=== PATIENT | male | born 1980 | race African-American/Black ===

== ENCOUNTER 2022-08-08 22:49 | Emergency (ER) | payer OTHER, SELFPAY ==
[2022-08-08 22:56] VITALS: BP 164/97; PULSE 79; RESP 18; TEMP 36.6; O2SAT 97; BMI 36.3
--- NOTE | 2022-08-08 23:02 | ECG_ITS ---
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 Measurements Intervals [place] Rate: 71 P: 49 CO: 164 QRS: 47 QRSD: 102 T: 12 QT: 367 QTc: 400 Interpretive Statements SINUS RHYTHM No previous ECG available for comparison Electronically Signed On 08-09-2022 8:39:45 INTERVENTIONAL TECHNOLOGIST by Liliam Chavira M.D. [id number]
== END 2022-08-09 00:57 | disposition still patient (30) ==
PROVIDERS: Emergency Provider Family Medicine
DX: Z53.21 Procedure and treatment not carried out due to patient leaving prior to being seen by health care provider (principal)
CPT/HCPCS: 93005

== ENCOUNTER → 2022-10-19 14:10 | Outpatient (BNVA) | payer OTHER, SELFPAY | PROVIDERS: Referring Provider Emergency Medicine Emergency Medical Services; Visit Provider Orthopaedic Surgery | DX: M16.11 Unilateral primary osteoarthritis, right hip (principal) | CPT/HCPCS: 99203 ==

== ENCOUNTER 2022-12-13 09:51 | Observation (INO) | payer OTHER, SELFPAY ==
[2022-12-06 10:21] VITALS: BMI 43.1
--- NOTE | 2022-12-06 10:36 | ANES.PREANE2 ---
Pre-Anesthetic Assessment Height/Weight: Height 1.85 m Weight 148.325 kg Operation Date: 12/13/22 07:00 Proposed Procedures p right total hip arthroplasty 55232, M16.11(Right) - Fito Pacheco MD Familial anesthetic complications: None Social Alcohol (1-2 drinks a couple night a week) and Tobacco Exam alert, oriented x 3, clear to auscultation bilaterally and regular rate & rhythm Airway Mallampati: Class IV Dentition: full Pulmonary None reported CV/HEM Hypertension and None reported None reported Hepatic None reported GI None reported Metabolic Hyperlipidemia [facility]/skel Lower Back Pain Anesthetic Plan ASA status: 2 Anesthesia: Regional (specify below) Risk of > 500 ml blood loss (7ml/kg in children): Yes, adequate IV access and fluids planned Medications/Allergies Home Medications Medication Instructions Recorded Confirmed Last Taken Type omega 9-jpi-hhs-fish oil 1,000 mg 1 cap PO DAILY 10/19/22 12/06/22 Unknown History (120 mg-180 mg) capsule (Fish Oil) calcium phosphate,dibasic 77 tab PO 12/06/22 12/06/22 History mg-vitamin D3 400 unit tablet rosuvastatin 20 mg tablet 20 mg PO DAILY 12/06/22 12/06/22 12/06/22 History Allergies Allergy/AdvReac Type Severity Reaction Status Date / Time shellfish derived Allergy ALGY-Anaphy Verified 12/06/22 10:18 laxis [facility] Anesthesia Social History (Updated 10/19/22 @ 14:34 by Adolfo Vega LPN) Smoking and tobacco status: current every day smoker Alcohol intake: current Alcohol intake frequency: holidays/special occasions only Substance/Drug Use: never Data Anesthesia Cardiac Studies: No Data to Display
[2022-12-13] VITALS (22 sets, daily range): BP systolic 111–163; BP diastolic 34–98; PULSE 52–80; RESP 16–18; TEMP 36.1–36.7; O2SAT 94–99
[2022-12-13] MEDS: oxyCODONE 20 mg ER (12 HR) Tablet PO (06:06)
[2022-12-13] MEDS: CELEcoxib 200 mg Capsule 400 MG PO (06:07)
[2022-12-13] MEDS: gabapentin 300 mg Capsule PO ×2 (06:08→17:37)
[2022-12-13] MEDS: acetaminophen 500 mg Tablet 1000 MG PO ×3 (06:08→21:28)
[2022-12-13] MEDS: sodium chloride 0.9% 1,000 ML 30 ML IV (06:10)
--- NOTE | 2022-12-13 06:56 | W.PM.OPSFHP ---
Same Day Surgery H&P Indication for Procedure/HPI DATE OF PROCEDURE: December 13, 2022 CHIEF COMPLAINT/INDICATIONFOR SURGICAL PROCEDURE: Osteoarthritis right hip here for total hip arthroplasty PREOP DIAGNOSIS: Osteoarthritis right hip PLANNED PROCEDURE: Operation Date: 12/13/22 07:00 Proposed Procedures p right total hip arthroplasty 38761, M16.11(Right) - Fito Pacheco MD 41-year-old male for right total hip arthroplasty. Has had pain for years worse with standing and walking. Has tried anti-inflammatories with incomplete help. Now unable to ambulate more than a few 100 feet without pain. Medications/Allergies* Home Medications Medication Instructions Recorded Confirmed Type omega 0-gjq-snu-fish oil 1,000 mg 1 cap PO DAILY 10/19/22 12/06/22 History (120 mg-180 mg) capsule (Fish Oil) calcium phosphate,dibasic 77 1 tab PO DAILY 12/06/22 12/13/22 History mg-vitamin D3 400 unit tablet rosuvastatin 20 mg tablet 20 mg PO DAILY 12/06/22 12/06/22 History Allergies/Adverse Reactions Allergy/AdvReac Type Severity Reaction Status Date / Time shellfish derived Allergy ALGY-Anaphy Verified 12/06/22 10:18 laxis Current Medications: Generic Name Dose Route Start Last Admin Trade Name Freq PRN Reason Stop Dose Admin Sodium Chloride 1,000 mls @ 30 mls/hr 12/13/22 06:00 12/13/22 06:10 Sodium Chloride 0.9% IV 12/14/22 05:59 30 mls/hr .Q24H AIXA Administration Pertinent History/Comorbid Conditions* Social History Smoking and tobacco status: current every day smoker Alcohol intake: current Alcohol intake frequency: holidays/special occasions only Substance/Drug Use: never Pertinent Exam Findings alert, oriented x 3, clear to auscultation bilaterally, regular rate & rhythm and operative site marked Recommendations Surgery/Procedure today Coding Level of Care Code Acute Code for Chg Fwd Diagnoses
--- NOTE | 2022-12-13 07:14 | P.ANESUD_ITS ---
Pre-Anesthetic Update Pre-Anesthetic Assessment: Date of Surgery/Procedure: 12/13/22 Preop [place] gn[place]: Osteoarthritis right hip Proposed Procedure: Operation Date: 12/13/22 07:00 Proposed Procedures p right total hip arthroplasty 13013, M16.11(Right) - Fito Pacheco MD Any changes to Pre-Anesthetic Assessment?: No Last Intake: Intake Last Liquid Date 12/12/22 Last Liquid Time 21:00 Last Solid Date 12/12/22 Last Solid Time 17:00 Vitals: Temperature 98.1 F 12/13/22 05:59 Temperature Source Temporal Artery S can 12/13/22 05:59 Pulse Rate 74 12/13/22 05:59 Respiratory Rate 18 12/13/22 06:06 Respiratory Effort Spontaneous 12/13/22 06:06 Respiratory Depth Normal 12/13/22 06:06 Respiratory Patter n Normal 12/13/22 06:06 Blood Pressure 154/98 12/13/22 05:59 Blood Pressure Sandrita n 116 12/13/22 05:59 Pulse Oximetry 99 12/13/22 06:06 Oxygen Delivery Me thod Room Air 12/13/22 06:03 Exam: Pre-Anes Outpt Exam: alert, oriented x 3, clear to auscultation bilaterally and regular rate & rhythm Cardiac Studies: No Data to Display
[2022-12-13] MEDS: ceFAZolin 1,000 MG in sodium chloride 0.9% (plus) 50 ML 100 MG IV (07:16)
[2022-12-13] MEDS: ceFAZolin 2,000 MG in sodium chloride 0.9% (plus) 50 ML 100 MG IV ×3 (07:16→22:43)
--- NOTE | 2022-12-13 07:19 | P.HP_ITS ---
Same Day Surgery H&P Indication for Procedure/HPI DATE OF PROCEDURE: December 13, 2022 PREOP DIAGNOSIS: Osteoarthritis right hip PLANNED PROCEDURE: Operation Date: 12/13/22 07:00 Proposed Procedures p right total hip arthroplasty 11994, M16.11(Right) - Fito Pacheco MD Medications/Allergies* Home Medications Medication Instructions Recorded Confirmed Type omega 4-dqt-ykx-fish oil 1,000 mg 1 cap PO DAILY 10/19/22 12/06/22 History (120 mg-180 mg) capsule (Fish Oil) calcium phosphate,dibasic 77 1 tab PO DAILY 12/06/22 12/13/22 History mg-vitamin D3 400 unit tablet rosuvastatin 20 mg tablet 20 mg PO DAILY 12/06/22 12/06/22 History Allergies/Adverse Reactions Allergy/AdvReac Type Severity Reaction Status Date / Time shellfish derived Allergy ALGY-Anaphy Verified 12/06/22 10:18 laxis Current Medications: 3 Generic Name Dose Route Start Last Admin Trade Name Freq PRN Reason Stop Dose Admin Sodium Chloride 1,000 mls @ 30 mls/hr 12/13/22 06:00 12/13/22 06:10 Sodium Chloride 0.9% IV 12/14/22 05:59 30 mls/hr .Q24H AIXA Administration Pertinent History/Comorbid Conditions* Social History Smoking and tobacco status: current every day smoker Alcohol intake: current Alcohol intake frequency: holidays/special occasions only Substance/Drug Use: never Coding Level of Care Code Acute Code for Chg Fwd Diagnoses
[2022-12-13] MEDS: tranexamic acid 1,000 mg/10mL SDV 1000 MG IV (07:48)
--- NOTE | 2022-12-13 09:18 | P.OP_ITS ---
Operative Report Date of procedure: December 13, 2022 Pre-op diagnosis: Preop Diagnosis Osteoarthritis right hip Post-op diagnosis: same Post-op diagnosis: Same Procedure done: Right total hip arthroplasty Implants: 1) [place] 58 mm Trident 2 solid back acetabular shell 2) Size 4 [place] 127 degree neck angle Accolade 2 stem 3} 28mm standard femoral head 4} F MDM metal liner Pathology: none sent Surgeon: Fito Pacheco Facility Engineer: Dinesh Perales Facility Engineer: The nurse practitioner assisted with critical portions of the case including positioning, exposure, implantation of components, closure, and postoperative abduction pillow application. Anesthesia: Nerve Block (Spinal) Estimated blood loss (mL): 250 Findings: The patient had severe eburnated bone over his femoral head and acetabulum with peripheral osteophytes about the femoral head and lateral acetabulum Condition: stable Disposition: PACU Procedure: The patient was taken to the operating room and anesthesia provided by the anesthesia service. The patient was placed in the lateral position on a pegboard. A timeout was performed. The patient was draped in the usual fashion. A 15 cm long incision was made beginning just proximal to the greater trochanter and extending posteriorly to a point just distal to the trochanter on the posterior border of the trochanter. Dissection was carried down with electrocautery through the subcutaneous fat to the fascia fermin which was divided proximally and distally with curved scissors. The anterior two thirds of the gluteus medius and minimus were elevated off the hip with electrocautery. The capsule was divided in a H-like fashion. The hip was dislocated and a neck cut made just above the level of the lesser trochanter. Exposure of the acetabulum was facilitated with the acetabular retractors. Remnants of labrum and peripheral osteophytes were removed with electrocautery and a rongeur. A reamer 2 mm under the size the femoral head was utilized to ream medially to the base of the palm and are. Reaming was then increased in 1 mm intervals until a healthy rim a trabecular bone was encountered. The rim was touched with the reamer the size of the final acetabular shell to be placed. A final Trident 2 acetabular cup of the same size as the final reaming was press- fit into place. The ADM liner was secured. Attention was then focused on the femur. The canal was localized with a canal finder. Broaching was then accomplished until a stable broach size was obtained. A trial reduction with the head and neck provided excellent stability. The wound was irrigated with saline and antibiotic solution. The final [place] Accolade II stem was press-fit into place. The femoral head was placed and the hip was reduced. The hip was brought through range of motion and found to be free of impingement and stable. The anterior capsule was reapproxi mated with 1 Ethibond. The gluteus medius and minimus were repaired through bone with 5 Ethibond and reinforced with 1 Ethibond. The fascial fermin was closed with a running 0 Stratafix suture. Deep pelvic tissues were closed with 2-0 Stratafix and the skin with a running 4-0 l Stratafix. The skin was covered with a Prineo dressing and op site dressings.
--- NOTE | 2022-12-13 09:25 | XR_ITS ---
WS: [id number] XR hip RT 1V wo/w pel [id number] REASON FOR EXAM: Total hip arthroplasty FINDINGS: Total right hip arthroplasty. The prosthetic components are in proper position and alignment and intact. No bone abnormality. XR/XR hip RT 1V wo/w pel [id number] IMPRESSION: Total right hip arthroplasty without abnormality.
--- NOTE | 2022-12-13 09:33 | PC.NURSE ---
Pt arrived to PACU, awake, pt denies any pain or nausea at this time. Dressing to right hip C/D/I, abductor pillow in place, right toes w/d, cap refill < 3 seconds, good pedal pulse noted. Pt reports sensation above level L1. Ice pack applied. SCD's in place and running.
[2022-12-13] MEDS: oxyCODONE 5 mg IR Tab/Cap PO (11:26)
--- NOTE | 2022-12-13 13:32 | ANE.PACU2 ---
Inpatient post-anesthesia follow up: Airway intact: Yes Vital signs: Temperature 97.8 F Pulse Rate 61 Respiratory Rate 16 Blood Pressure 128/79 Pulse Oximetry 95 Oxygen Delivery Me thod Room Air Oxygen Flow Rate Fraction of Inspir ed Oxygen Hydration adequate: Yes Nausea and vomiting: No Pain level: 2 Mental status: Baseline
[2022-12-13] MEDS: oxyCODONE 5 mg IR Tab/Cap 10 MG PO ×3 (15:39→23:23)
[2022-12-13] MEDS: sennosides-docusate Tablet 2 TAB PO (17:37)
[2022-12-13] MEDS: CELEcoxib 200 mg Capsule PO (17:37)
[2022-12-14 03:22] VITALS: BP 148/74; PULSE 60; RESP 18; TEMP 36.8; O2SAT 96
[2022-12-14 04:07] LABS: Hemoglobin 13.4 g/dL (11.7-16.6)
[2022-12-14] MEDS: acetaminophen 500 mg Tablet 1000 MG PO (06:05)
[2022-12-14] MEDS: CELEcoxib 200 mg Capsule PO (06:06)
[2022-12-14] MEDS: ceFAZolin 2,000 MG in sodium chloride 0.9% (plus) 50 ML 100 MG IV (06:06)
[2022-12-14 07:28] VITALS: BP 175/93; PULSE 77; RESP 18; TEMP 36.7; O2SAT 96
[2022-12-14 08:00] VITALS: PULSE 77; RESP 18; O2SAT 96
--- NOTE | 2022-12-14 08:02 | PM.DCS ---
Discharge Providers Date of Admission: 12/13/22 09:51 Date of Discharge: December 14, 2022 Attending Provider at Admission: Fito Soares MD Attending Provider at Discharge: Fito Soares MD Primary Care Provider: Saad Reyes DO Diagnoses at Discharge Discharge Diagnosis (1) Status post right hip replacement: Status: Acute (2) Osteoarthritis of right hip: Status: Acute Reason for Visit Reason for Visit: M16.11 Brief History: 42-year-old male with years of chronic right hip pain despite appropriate nonoperative management. Admitted for elective right total hip arthroplasty Hospital Course Hospital Course The patient tolerated surgery well. They remained hemodynamically stable. They was begun on aspirin and sequential compression dressing for DVT prophylaxis. The patient was mobilized with therapy beginning the day of surgery and by the first postoperative day independent with the walker. As the pain was adequately controlled and they were fully mobile they were discharged home. Physical Exam Narrative: On the day of discharge the hip incision was clean. The incision was free of drainage. They had no particular swelling about the thigh or distal. No distal neurovascular deficits were noted. Discharge Data Studies Completed and Pending Completed Studies During Hospitalization Category Date Time Status XR hip RT 1V wo/w pel [id number] Routine Exams 12/13/22 09:25 Completed Radiology Impressions Hip X-Ray 12/13/22 09:25 IMPRESSION: Total right hip arthroplasty without abnormality. Laboratory Results Hgb 13.4 g/dL (11.7-16.6) 12/14/22 03:13 Vitals Last Vital Signs Temp 98.0 F 12/14/22 07:28 Pulse 77 12/14/22 07:28 Resp 18 12/14/22 07:28 BP 175/93 12/14/22 07:28 Pulse Ox 96 12/14/22 07:28 O2 Del Method Room Air 12/14/22 07:28 Discharge Plan Discharge Patient Disposition: Home Health Service Condition: Stable Prescriptions: New oxycodone 5 mg Tablet 10 mg PO Q3H PRN (Reason: Moderate Pain) 7 Days Qty: 40 0RF acetaminophen 500 mg Tablet 1,000 mg PO Q8H 14 Days Qty: 84 0RF aspirin 325 mg Tablet,Delayed Release (Dr/Ec) 325 mg PO DAILY 30 Days Qty: 30 0RF gabapentin 300 mg Capsule 300 mg PO BID 7 Days Qty: 14 0RF celecoxib 200 mg Capsule 200 mg PO Q12H 14 Days Qty: 28 0RF Continued omega 9-fhz-jaq-fish oil [Fish Oil] 1,000 mg (120 mg-180 mg) capsule 1 cap PO DAILY rosuvastatin 20 mg Tablet 20 mg PO DAILY Vitamin D (with calcium) 77-400 mg-unit Tablet 1 tab PO DAILY Discharge Orders: Discharge Order (Routine); Ordered 12/14/22 Ordered By: Fito Soares Other Ambulatory Orders: DME: Walker (Order) Location: None Selected Ordered By: Fito Soares Referrals: [facility] [place] [facility] ([facility]) [Outside] Fito Soares MD [Physician] - 12/28/22 2:15 pm Patient Instructions: Opioid Safety Activity Restrictions/Additional Instructions: Okay to shower. No soaking incision in tub May remove superficial tape dressing in 48 hours. Apply FirstIce up to 20 min/hr for pain and swelling Take Celebrex twice a day for the next 15 days for pain , discontinue other anti-inflammatories Take Neurontin twice a day for 7 days. Take Tylenol 500mg (up to 2 tabs) 3 times a day for mild pain Take oxycodone for breakthrough pain. Exercises per physical therapy. May weight-bear as tolerated on total hip arthroplasty IF HAVE ANY PROBLEMS OR QUESTIONS CALL HOSPITAL ERP BUSINESS ANALYST AT AND ASK TO HAVE DR. SOARES PAGED. Discharge Attestations Time Spent in Discharge Care*: other Quality Metrics Clinical Quality Measures [ No reported AMI, CVA or VTE this stay] Coding Level of Care Code Acute Code for Chg Fwd Diagnoses Status post right hip replacement Z96.641 Osteoarthritis of right hip M16.11
[2022-12-14] MEDS: gabapentin 300 mg Capsule PO (09:48)
[2022-12-14] MEDS: aspirin 325 mg EC Tablet PO (09:48)
[2022-12-14] MEDS: sennosides-docusate Tablet 2 TAB PO (09:48)
[2022-12-14 09:50] VITALS: RESP 18
[2022-12-14] MEDS: oxyCODONE 5 mg IR Tab/Cap 10 MG PO (09:50)
--- NOTE | 2022-12-14 10:33 | PC.CHAP ---
Pastoral Care Encounter/Spiritual Assessment Type of Contact [] Declined barber stylist visit [] Patient/Family/Request visit [] Outpatient visit [] Follow-up visit [] Physician referral [] Code/Alert [x] Routine visit [] Staff referral [] Actively dying [] Patient sleeping [x] Family support [] [] Out of room [] Palliative care [] [] Receiving care in room [] Pre-surgical visit [] Trauma [] Long length of stay [] ICU visit [] Other: Relational/Emotional Strength [] Patient feels connected with others/family/visitors/staff [] Distress [] Loneliness/isolation [] Abandonment Spirituality of Patient [] Person of Lian [] Attends Restorationist of their Lian [] Believes in Prayer [] Reads Bible or Mormonism materials [x] There are Spiritual issues to be addressed Hip Hop Artist Interventions [] Prayer [x] Active listening [] Non-anxious presence [] Spiritual/emotional support [] Crisis/trauma care [] Spiritual counseling [] Bereavement support [] Provided bereavement packet [] Provided Bible/devotional materials [] Provided toy/stuffed animal, coloring book to patient or family member [] Provided Communion [] Anointing/Eustace [] Salvation [] Completed spiritual assessment [] Other: Impact on Illness or Injury [] Angry [] Fearful [] Anxious [] Often cries [] Exhaustion [] Unable to work [] Unable to attend episcopal [] Unable to walk/stand [] Unable to read [] Unable to drive [] Unable to eat/drink [] Unable to sleep [] Unable to be with family [] Patient intubated [] Other: Summary Time spent with patient 5 min
[2022-12-14 10:51] VITALS: RESP 18
== END 2022-12-14 11:41 | disposition home health service (06) ==
LOC: MEDSURG 09:54
PROVIDERS: Admitting Provider Orthopaedic Surgery; PCP Emergency Medicine Emergency Medical Services; Visit Provider Orthopaedic Surgery
PROC: (CPT 27130; principal; 2022-12-13 07:00)
DX: M16.11 Unilateral primary osteoarthritis, right hip (principal); F17.200 Nicotine dependence, unspecified, uncomplicated; I10 Essential (primary) hypertension; E78.5 Hyperlipidemia, unspecified
CPT/HCPCS: 27130; 36415; 73501; 85018; 97116; 97162; 97166; 97530; C1776; G0378; J0690; J1100; J1580; J2250; J2405; J2704; J3010; J7030

== ENCOUNTER 2022-12-25 10:27 | Emergency (ER) | payer OTHER, SELFPAY ==
[2022-12-25] VITALS (7 sets, daily range): BP systolic 144–195; BP diastolic 89–108; PULSE 87–99; RESP 16–18; TEMP 36.7; O2SAT 94–98; BMI 41.5
--- NOTE | 2022-12-25 11:35 | XRR_ITS ---
PROCEDURE INFORMATION: Exam: XR Chest Exam date and time: 12/25/2022 11:49 AM Age: 42 years old Clinical indication: Cough and dyspnea; TECHNIQUE: Imaging protocol: Radiologic exam of the chest. Views: 1 view. COMPARISON: No relevant prior studies available. FINDINGS: Lungs: Unremarkable. No consolidation. Pleural spaces: Unremarkable. No pleural effusion. No pneumothorax. Heart/Mediastinum: Unremarkable. No cardiomegaly. Bones/joints: Unremarkable. XR/XR chest 1V portable [id number] IMPRESSION: No acute findings.
--- NOTE | 2022-12-25 11:35 | ECG_ITS ---
[facility] Test Date: 2022-12-25 Pat Name: Sadia Concepcion Department: Room: Gender: Male Civil Engineering Intern: : 1980 Requested By: Amor Rao Order Number: [id number] Mora MD: Darrell Long M.D. Measurements Intervals [place] Rate: 89 P: 38 [place]: 145 QRS: 6 QRSD: 108 T: 5 QT: 348 QTc: 424 Interpretive Statements SINUS RHYTHM Compared to ECG 08/08/2022 23:05:55 No significant changes Electronically Signed On 12-25-2022 12:27:55 CDT by Darrell Long M.D. [id number]
--- NOTE | 2022-12-25 12:04 | ED_ITS ---
HPI - Extremity Problem General: Chief complaint: Extremity Problem,Nontraumatic Stated complaint: right side hip pain post surgery, fever Time Seen by Provider: 12/25/22 11:34 Source: patient Mode of arrival: ambulatory History of Present Illness: 42-year-old male presents emergency room complaining of dysuria and some mild to moderate right hip pain he recently had a hip arthroplasty done for osteoarthritis. He has not had any swelling no fever sweats or chills. He denies any drainage from the wound. Nose new swelling in the leg. MD Complaint: extremity pain Associated symptoms: Deny chest pain, fever(s) or rash Review of Systems Const: Denies: fever(s), chills, fatigue or malaise ENMT: Denies: throat pain, ear or mastoid pain, nasal discharge or nasal congestion Card: Denies: chest pain, edema, dyspnea on exertion or orthopnea Resp: Denies: dyspnea, productive cough or non-productive cough GI: Denies: abdominal pain, nausea, vomiting, hematemesis, coffee ground emesis, diarrhea, constipation, bloating, hematochezia or melena : Denies: flank pain, dysuria, urinary frequency or urinary urgency Skin/Breast: Denies: rash or pruritus PFSH ED PFSH: Social History Smoking and tobacco status: current every day smoker Alcohol intake: current Alcohol intake frequency: holidays/special occasions only Substance/Drug Use: never Current occupation: Physical Exam Const: GENERAL APPEARANCE: cooperative and comfortable ORIENTATION/CONSCIOUSNESS: Yes awake, Yes oriented to person, Yes oriented to place and Yes oriented to time HENMT: COMMON NORMALS: normocephalic, atraumatic and hearing grossly normal bilaterally HEAD & SCALP: normocephalic and atraumatic Resp: COMMON NORMALS: normal respiratory effort, No retractions, No use of accessory muscles and clear to auscultation bilaterally AUSCULTATION: clear to auscultation bilaterally Cardio: COMMON NORMALS: regular rate, regular rhythm and No murmurs present (Cardio) RATE: regular rate RHYTHM: regular rhythm GI: COMMON NORMALS: Soft to palpation and No hepatosplenomegaly present AUSCULTATION: Yes normoactive bowel sounds PALPATION: Yes Soft to palpation, No Tenderness to palpation present (GI), No Guarding due to palpation present (GI) and Yes No hepatosplenomegaly present Extremity: COMMON NORMALS: normal to inspection, capillary refill normal, no clubbing, cyanosis or edema, no calf tenderness and no pedal edema Neuro: SENSORIUM/ORIENTATION: Yes oriented to person, Yes oriented to place and Yes oriented to time Skin: OTHER: Steri-Strips in place on the incision site these were removed there is a very small area on the superior aspect incision where the skin edges inverted slightly and is only about 2 mm of open space and is only partial-thickness there is no redness no erythema no induration no fluctuance minimal discomfort with palpation did not extend through to any fluid with palpation Course Vital Signs: Vital signs: Vital Signs Temperature 98.1 F 12/25/22 10:36 Pulse Rate 87 12/25/22 16:34 Respiratory Rate 16 12/25/22 16:34 Blood Pressure 171/103 12/25/22 16:34 Pulse Oximetry 95 12/25/22 16:34 Oxygen Delivery Me thod Room Air 12/25/22 11:26 MDM - Extremity (Nontraumatic) Medical Decision Making Patient does have a cystitis. No other signs of infection there is a small fluid collection noted on the CT is suspect that is a seroma. Discussed with Dr. Carney. We will start him on antibiotics cultures have been done have him follow-up next week in the orthopedic clinic return if he has further problems. Medical Records I reviewed the patient's medical records. Lab Data I reviewed the patient's lab results. 12/25/22 12:08 12/25/22 12:08 Radiology Impressions Chest X-Ray 12/25/22 11:35 IMPRESSION: No acute findings. Hip CT 12/25/22 13:40 IMPRESSION: 1. There is a fluid collection in the subcutaneous soft tissues adjacent to the right gluteal muscles. Differential includes postoperative seroma, hematoma, and abscess formation. Stranding is present in the adjacent subcutaneous soft tissues. 2. Status post right total hip replacement. Acetabular and proximal femoral components appear intact and in satisfactory alignment. Laboratory Results WBC 13.8 10^3/uL (4.0-10.0) H 12/25/22 12:08 RBC 4.29 10^6/uL (4.1-5.3) 12/25/22 12:08 Hgb 13.4 g/dL (11.7-16.6) 12/25/22 12:08 Hct 40.8 % (42.0-52.0) L 12/25/22 12:08 MCV 95.1 fl (80-94) H 12/25/22 12:08 MCH 31.2 pg (28.0-34.0) 12/25/22 12:08 MCHC 32.8 g/dL (30.0-36.0) 12/25/22 12:08 RDW 13.3 % (12.1-15.1) 12/25/22 12:08 Plt Count 377 10^3/cmm (130-400) 12/25/22 12:08 MPV 9.0 fL (7.4-10.4) 12/25/22 12:08 Neut % (Auto) 66.5 % 12/25/22 12:08 Lymph % (Auto) 20.8 % 12/25/22 12:08 Walker % (Auto) 9.8 % 12/25/22 12:08 Eos % (Auto) 2.1 % 12/25/22 12:08 Baso % (Auto) 0.4 % 12/25/22 12:08 Neut # (Auto) 9.17 10^3/uL (1.8-7.7) H 12/25/22 12:08 Lymph # (Auto) 2.9 10^3/uL (0.8-4.8) 12/25/22 12:08 Walker # (Auto) 1.4 10^3/uL (0.2-0.9) H 12/25/22 12:08 Eos # (Auto) 0.3 10^3/uL (0.0-0.8) 12/25/22 12:08 Baso # (Auto) 0.1 10^3/uL (0.0-0.1) 12/25/22 12:08 Nucleated RBC % (auto) 0 % 12/25/22 12:08 Nucleated RBCs # 0.0 /100WBC 12/25/22 12:08 Sodium 134 mmol/L (136-145) L 12/25/22 12:08 Potassium 3.9 mmol/L (3.5-5.1) 12/25/22 12:08 Chloride 97 mmol/L (98-107) L 12/25/22 12:08 Carbon Dioxide 26 mmol/L (22-29) 12/25/22 12:08 Anion Gap 14.9 (5-19) 12/25/22 12:08 BUN 11 mg/dL (6-20) 12/25/22 12:08 Creatinine 0.8 mg/dL (0.7-1.2) 12/25/22 12:08 GFR Calculation 128.9 mL/min (90-130) 12/25/22 12:08 Glucose 96 mg/dL (65-115) 12/25/22 12:08 Calculated Osmolality 277 mOsm/kg (285-295) L 12/25/22 12:08 Calcium 9.2 mg/dL (8.5-10.5) 12/25/22 12:08 Total Bilirubin 0.4 mg/dL (0.15-1.2) 12/25/22 12:08 AST 26 U/L (0-40) 12/25/22 12:08 ALT 61 U/L (0-41) H 12/25/22 12:08 Alkaline Phosphatase 86 U/L (40-130) 12/25/22 12:08 C-Reactive Protein 93.9 mg/L (0.0-4.9) H 12/25/22 12:08 Total Protein 7.5 g/dL (6.6-8.7) 12/25/22 12:08 Albumin 4.0 g/dL (3.5-5.2) 12/25/22 12:08 Globulin 3.5 g/dL (1.3-4.6) 12/25/22 12:08 Urine Color Straw (Yellow) 12/25/22 14:28 Urine Appearance Sl hazy (CLEAR) A 12/25/22 14:28 Urine pH 5 (5-7) 12/25/22 14:28 Ur Specific [place] 1.010 (1.005-1.030) 12/25/22 14:28 Urine Protein Neg (Negative) 12/25/22 14:28 Urine Glucose (UA) Norm (Normal) 12/25/22 14:28 Urine Ketones Negative (Negative) 12/25/22 14:28 Urine Blood 3+ (Negative) H 12/25/22 14:28 Urine Nitrate Positive (Negative) H 12/25/22 14:28 Urine Bilirubin Neg (Negative) 12/25/22 14:28 Urine Urobilinogen Norm mg/dL (Negative) 12/25/22 14:28 Ur Leukocyte Esterase 2+ (Negative) H 12/25/22 14:28 Urine RBC 5-10 /hpf (0-2) H 12/25/22 14:28 Urine WBC 25-40 /hpf (0-5) H 12/25/22 14:28 Ur Squamous Epith Cells None /hpf (0-5) 12/25/22 14:28 Amorphous Sediment Not Reportable 12/25/22 14:28 Urine Bacteria 3+ /hpf (NONE) H 12/25/22 14:28 Discharge Plan Discharge Patient Disposition: Home Clinical Impression: Cystitis, Status post right hip replacement Condition: Stable Prescriptions: New Cipro 500 mg tablet 500 mg PO BID Qty: 14 0RF No Action omega 2-ian-kaf-fish oil [Fish Oil] 1,000 mg (120 mg-180 mg) capsule 1 cap PO DAILY oxycodone 5 mg tablet 5 mg PO Q4H PRN (Reason: pain) 7 Days Qty: 30 0RF rosuvastatin 20 mg Tablet 20 mg PO DAILY calcium phos,dibas-vitamin D3 77-400 mg-unit Tablet 1 tab PO DAILY celecoxib 200 mg Capsule 200 mg PO Q12H 14 Days Qty: 28 0RF acetaminophen 500 mg Tablet 1,000 mg PO Q8H 14 Days Qty: 84 0RF aspirin 325 mg Tablet,Delayed Release (Dr/Ec) 325 mg PO DAILY 30 Days Qty: 30 0RF Discharge Orders: Discharge ED (Routine); Ordered 12/25/22 Ordered By: Amor Harry Referrals: Saad Reyes DO [Primary Care Provider] - Discharge Diet: Usual diet Discharge Activity: Increase activity as tolerated Patient Instructions: Urinary Tract Infection in Men (ED), Opioid Safety, Pain Management Coding Level of Care Code ED Utility [employer]r for Saul King
[2022-12-25 12:38] LABS: Basophils # 0.1 10^3/uL (0.0-0.1); Basophils % 0.4 %; Eosinophils # 0.3 10^3/uL (0.0-0.8); Eosinophils % 2.1 %; Hematocrit 40.8 % (42.0-52.0); Hemoglobin 13.4 g/dL (11.7-16.6); Lymphocytes # 2.9 10^3/uL (0.8-4.8); Lymphocytes % 20.8 %; Mean Corpuscular HGB Conc 32.8 g/dL (30.0-36.0); Mean Corpuscular Hemoglobin 31.2 pg (28.0-34.0); Mean Corpuscular Volume 95.1 fl (80-94); Monocytes # 1.4 10^3/uL (0.2-0.9); Monocytes % 9.8 %; Neutrophils # 9.17 10^3/uL (1.8-7.7); Neutrophils % 66.5 %; Nucleated Red Blood Cells % 0 %; Platelet Count 377 10^3/cmm (130-400); Red Blood Count 4.29 10^6/uL (4.1-5.3); Red Cell Distribution Width 13.3 % (12.1-15.1); White Blood Count 13.8 10^3/uL (4.0-10.0)
[2022-12-25 12:40] LABS: Alanine Aminotransferase 61 U/L (0-41); Alkaline Phosphatase 86 U/L (40-130); Anion Gap 14.9 (5-19); Aspartate Amino Transferase 26 U/L (0-40); Blood Urea Nitrogen 11 mg/dL (6-20); Calcium 9.2 mg/dL (8.5-10.5); Carbon Dioxide 26 mmol/L (22-29); Chloride 97 mmol/L (98-107); Globulin 3.5 g/dL (1.3-4.6); Glomerular Filtration Rate 128.9 mL/min (90-130); Glucose 96 mg/dL (65-115); Osmolality Calculated 277 mOsm/kg (285-295); Potassium 3.9 mmol/L (3.5-5.1); Sodium 134 mmol/L (136-145); Total Bilirubin 0.4 mg/dL (0.15-1.2); Total Protein 7.5 g/dL (6.6-8.7)
--- NOTE | 2022-12-25 13:40 | CTR_ITS ---
PROCEDURE INFORMATION: Exam: CT Right Lower Extremity With Contrast, Hip Exam date and time: 12/25/2022 2:54 PM Age: 42 years old Clinical indication: Pain; Right; Prior surgery; Surgery date: <1 month; Surgery type: Arthoplasty; Patient HX: RT hip; Additional info: Pain/fever S/P hip arthoplasty TECHNIQUE: Imaging protocol: CT of the right lower extremity with intravenous contrast was performed. Exam focused on the hip. Radiation optimization: All CT scans at this facility use at least one of these dose optimization techniques: automated exposure control; mA and/or kV adjustment per patient size (includes targeted exams where dose is matched to clinical indication); or iterative reconstruction. Contrast material: OMNI 350; Contrast volume: 100 ml; Contrast route: INTRAVENOUS (IV); REPORTING DATA: Count of CT and Cardiac NM exams in prior 12 months: This patient has received 0 known CTs and 0 known cardiac nuclear medicine studies in the 12 months prior to the current study. COMPARISON: CR XR hip RT 1V wo/w pel [id number] 12/13/2022 8:39 AM RADIATION DOSE METRICS: Total DLP (mGy-cm): 842.21 FINDINGS: Bones/joints: Status post right total hip replacement. Acetabular and proximal femoral components appear intact and in satisfactory alignment. There is resultant beam hardening artifact obscuring adjacent structures. Soft tissues: There is stranding in the soft tissues along the lateral aspect of the right hip and upper thigh. There is a fluid collection in the subcutaneous soft tissues adjacent to the right gluteal muscles measuring 3.9 x 2.4 by 14.4 cm in the visualized transverse/AP/craniocaudad dimensions. Please note this is not completely visualized at the superior aspect of the collection. CT/CT hip RT w con [id number] IMPRESSION: 1. There is a fluid collection in the subcutaneous soft tissues adjacent to the right gluteal muscles. Differential includes postoperative seroma, hematoma, and abscess formation. Stranding is present in the adjacent subcutaneous soft tissues. 2. Status post right total hip replacement. Acetabular and proximal femoral components appear intact and in satisfactory alignment.
[2022-12-25 14:05] LABS: C Reactive Protein 93.9 mg/L (0.0-4.9)
[2022-12-25] MEDS: iohexol 350 mg/mL 500 mL Btl (per mL) IV (14:59)
[2022-12-25 15:16] LABS: Urine Appearance SL Hazy (CLEAR); Urine Color Straw (Yellow); pH Urine 5 (5-7)
[2022-12-25 15:17] LABS: Add Urine Culture? Yes; Add Urine Microscopic? YES; Bacteria Urine 3+ /hpf; Bilirubin Urine Neg (Negative); Blood Urine 3+ (Negative); Glucose Urine UA Norm (Normal); Ketones Urine Negative (Negative); Leukocyte Esterase Urine 2+ (Negative); Nitrate Urine Positive (Negative); Protein Urine Neg (Negative); Urobilinogen Urine Norm (Negative); WBC Urine 25-40 /hpf (0-5)
== END 2022-12-25 16:38 | disposition home or self-care (01) ==
PROVIDERS: Emergency Provider Family Medicine; PCP Emergency Medicine Emergency Medical Services
DX: N30.90 Cystitis, unspecified without hematuria (principal); Z96.641 Presence of right artificial hip joint; Z79.82 Long term (current) use of aspirin; F17.210 Nicotine dependence, cigarettes, uncomplicated
CPT/HCPCS: 36415; 71045; 73701; 80053; 81001; 85025; 86140; 87040; 87077; 87086; 87186; 93005; 99285; Q9967

== ENCOUNTER → 2022-12-28 15:11 | Outpatient (BNVA) | payer OTHER, SELFPAY | PROVIDERS: PCP Emergency Medicine Emergency Medical Services; Visit Provider Nurse Practitioner Family | DX: Z96.641 Presence of right artificial hip joint (principal) | CPT/HCPCS: 99024 ==

== ENCOUNTER 2023-01-24 06:43 | Outpatient (RCR) | payer OTHER, SELFPAY | END 2023-01-31 23:59 | disposition home or self-care (01) | LOC: SPT 06:43 | PROVIDERS: Visit Provider Nurse Practitioner Family | DX: Z47.89 Encounter for other orthopedic aftercare (principal) | CPT/HCPCS: 97110; 97161; 97530 ==

== ENCOUNTER → 2023-01-26 10:20 | Outpatient (BNVA) | payer OTHER, SELFPAY | PROVIDERS: Visit Provider Nurse Practitioner Family | DX: Z96.641 Presence of right artificial hip joint (principal); Z48.89 Encounter for other specified surgical aftercare | CPT/HCPCS: 73502; 99024 ==

== ENCOUNTER 2023-02-01 06:00 | Outpatient (RCR) | payer OTHER, SELFPAY | END 2023-03-03 23:59 | disposition home or self-care (01) | LOC: SPT 06:00 | PROVIDERS: Visit Provider Nurse Practitioner Family | DX: Z47.1 Aftercare following joint replacement surgery (principal); Z96.641 Presence of right artificial hip joint | CPT/HCPCS: 97110; 97530 ==

== ENCOUNTER 2023-03-04 06:00 | Outpatient (RCR) | payer OTHER, SELFPAY | END 2023-03-17 23:59 | disposition home or self-care (01) | LOC: SPT 06:00 | PROVIDERS: Visit Provider Nurse Practitioner Family | DX: Z96.641 Presence of right artificial hip joint (principal) | CPT/HCPCS: 97110 ==

== ENCOUNTER → 2023-06-07 08:40 | Outpatient (BNVA) | payer OTHER, SELFPAY | PROVIDERS: Visit Provider Physician Assistant | DX: Z96.641 Presence of right artificial hip joint (principal); Z48.89 Encounter for other specified surgical aftercare | CPT/HCPCS: 73522; 99213 ==

== ENCOUNTER → 2023-12-15 09:54 | Outpatient (BNVA) | payer OTHER, SELFPAY | PROVIDERS: PCP Nurse Practitioner; Visit Provider Physician Assistant | DX: Z96.641 Presence of right artificial hip joint; Z48.89 Encounter for other specified surgical aftercare | CPT/HCPCS: 73522; 99213 ==

== ENCOUNTER → 2024-12-14 10:28 | Outpatient (BNVA) | payer OTHER, SELFPAY | PROVIDERS: PCP Nurse Practitioner; Visit Provider Physician Assistant | DX: Z96.641 Presence of right artificial hip joint (principal); Z48.89 Encounter for other specified surgical aftercare | CPT/HCPCS: 73502; 99213 ==